=== PATIENT | male | born 1955 | race Caucasian/White ===

== ENCOUNTER 2018-10-24 09:14 | Inpatient (IN) | payer BC ==
[~2018-10-24 09:14] MED LIST: Buffered Lidocaine 0.9% SYRIN* 5 ML/SYR SYRINGE INTRADERM ONE; Lactated Ringers 1000 ML Bag* 1,000 ML IV SCH
[2018-10-24] MEDS ORDERED: ceFAZolin 2 GM PREMIX in ORs 2 GM/50 ML BAG IVPB ONE (10:36)
[2018-10-24] MEDS ORDERED: Lidocaine 2% PF * 5 ML VIAL ONE (10:56)
[2018-10-24] MEDS ORDERED: Propofol* 10 MG/ML 20 ML BTL ONE (10:56)
[2018-10-24] MEDS ORDERED: Midazolam* 1 MG/ML 2 ML VIAL (2 MG) ONE (10:57)
[2018-10-24] MEDS ORDERED: fentaNYL* 50 MCG/ML 2 ML VIAL (100 MCG VIAL) ONE (10:57)
[2018-10-24] MEDS ORDERED: Rocuronium* 10 MG/ML VIAL ONE (10:57)
[2018-10-24] MEDS ORDERED: Phenylephrine INJ* 10 MG/ML 1 ML VIAL (10 MG) ONE (11:00)
[2018-10-24] MEDS ORDERED: HYDROmorphone INJ1* 1 MG/ML SYRINGE ONE ×2 (11:21→14:40)
[2018-10-24] MEDS ORDERED: Neostigmine Methylsulfate* 1 MG/ML 10 ML VIAL (1 mg/ml) ONE ×2 (11:22→13:40)
[2018-10-24] MEDS ORDERED: Glycopyrrolate IV* 0.2 MG/ML 1 ML VIAL ONE ×2 (11:22→13:40)
[2018-10-24] MEDS ORDERED: Lidocain 1% EPI 1:100,000 * 30 ML MDV ONE (11:55)
[2018-10-24] MEDS ORDERED: Bacitracin IV* 50,000 UNITS INJ ONE (11:55)
[2018-10-24] MEDS ORDERED: ROPINIROLE 1 MG PO ONE (12:00)
[2018-10-24] MEDS ORDERED: CARBIDOPA PO ONE ×3 (12:00)
[2018-10-24] MEDS ORDERED: LEVODOPA PO ONE (12:00)
[2018-10-24] MEDS ORDERED: LEVODOP PO ONE ×2 (12:00)
[2018-10-24] MEDS ORDERED: Thrombin 5,000 UNITS* 1 APPLIC KIT - topical use - TOPICAL ONE (12:17)
[2018-10-24] MEDS ORDERED: Ketorolac INJ* 30 MG/ML 1 ML VIAL ONE (12:59)
[2018-10-24] MEDS ORDERED: Dexamethasone IV* 4 MG/ML 1 ML (4 MG) ONE (12:59)
[2018-10-24] MEDS ORDERED: Metoclopramide IV* 5 MG/ML 2 ML VIAL ONE (12:59)
[2018-10-24] MEDS ORDERED: Ondansetron INJ* 2 MG/ML VIAL ONE (12:59)
[2018-10-24] MEDS ORDERED: oxyCODONE TAB* 5 MG TAB PO PRN (14:11)
[2018-10-24] MEDS ORDERED: Magnesium Hydroxide LIQ* 30 ML UDC PO PRN (14:11)
[2018-10-24] MEDS ORDERED: Acetaminophen TAB* 325 MG PO PRN ×2 (14:11→14:40)
[2018-10-24] MEDS ORDERED: Ondansetron INJ* 2 MG/ML VIAL IV PRN (14:11)
[2018-10-24] MEDS ORDERED: Naloxone* 0.4 MG/ML 1 ML VIAL IV PRN (14:40)
[2018-10-24] MEDS: HYDROmorphone INJ1* 1 MG/ML SYRINGE IV PRN ×5 (14:40→15:23)
[2018-10-24] MEDS ORDERED: DiMENhydriNATE IV* 50 MG/ML VIAL IV PUSH PRN (14:40)
[2018-10-24] MEDS ORDERED: oxyCODONE TAB* 5 MG TAB ONE (14:57)
[2018-10-24] MEDS: oxyCODONE TAB* 5 MG TAB PO PRN ×3 (14:59→20:23)
[2018-10-24] MEDS ORDERED: Lactated Ringers 1000 ML Bag* 1,000 ML IV SCH (15:00)
[2018-10-24] MEDS: Carbidopa/Levodop 25/100 MG TAB(*) PO SCH (15:04)
[2018-10-24] MEDS: rOPINIRole TAB* 1 MG PO SCH (15:04)
[2018-10-24] MEDS: Gabapentin CAP(*) 100 MG PO SCH (15:04)
[2018-10-24] MEDS: Carbidopa/Levodop CR 50/200(*) TAB.CR PO SCH (15:05)
[2018-10-24] MEDS: traMADol TAB* 50 MG PO PRN (17:51)
[2018-10-24] MEDS: rOPINIRole TAB* 4 MG PO SCH (22:11)
[2018-10-24] MEDS: clonazePAM TAB(*) 0.5 MG PO SCH (22:11)
[2018-10-24] MEDS: Propranolol TAB* 20 MG PO SCH (22:13)
[2018-10-25] MEDS: rOPINIRole TAB* 1 MG PO SCH ×3 (06:26→13:53)
[2018-10-25] MEDS: Carbidopa/Levodop 25/100 MG TAB(*) PO SCH ×3 (06:26→13:53)
[2018-10-25] MEDS: Carbidopa/Levodop CR 50/200(*) TAB.CR PO SCH ×3 (06:27→13:53)
[2018-10-25] MEDS: Carbidopa/Levodop 25/250MG TAB(*) PO SCH ×2 (06:28→09:53)
[2018-10-25] MEDS: Gabapentin CAP(*) 100 MG PO SCH ×3 (06:28→13:55)
[2018-10-25] MEDS: oxyCODONE TAB* 5 MG TAB PO PRN ×3 (09:41→23:33)
[2018-10-25] MEDS ORDERED: Methocarbamol TAB* 500 MG PO PRN (10:15)
--- NOTE | 2018-10-25 12:48 | PN ---
Progress Note - Progress Note Date of Service: 10/25/18 SOAP: Subjective: [S/p decompressive lumbar laminectomy L3-4, L4-5, L5-S1, POD #1. Reports improvement in pre-op lower extremity and hips pain. Complains of low back discomfort, pain and muscle tightness. Pain contributes to worsening of PD symptoms, tremor. Was able to get up with assistance. Denies headache, nausea. ] Objective: [ Vital Signs: Temp Pulse Resp BP Pulse Ox 97.8 F 73 16 102/55 97 10/25/18 02:09 10/25/18 02:09 10/25/18 09:53 10/25/18 02:09 10/25/18 02:09 General: Alert and sitting up in bed, NAD. Neuro: Motor and sensory normal. Upper extremity tremor bilaterally. Incision: Intact with [place], no swelling. Wound drain in place and functioning well. Wound drain output 10/24/18 10/24/18 10/24/18 14:45 18:00 20:04 Output, CHRISTIAN #1 60 50 40 10/24/18 10/25/18 10/25/18 22:00 02:17 06:00 Output, CHRISTIAN #1 20 35 18 10/25/18 10:13 Output, CHRISTIAN #1 40 ] Assessment: [Satisfactory post-op. Wound drain requires further monitoring. ] Plan: [1. PT evaluation 2. Add muscle relaxant 3. Continue pain management]
[2018-10-25] MEDS: traMADol TAB* 50 MG PO PRN ×2 (13:54→21:18)
[2018-10-25] MEDS: rOPINIRole TAB* 4 MG PO SCH (23:32)
[2018-10-25] MEDS: clonazePAM TAB(*) 0.5 MG PO SCH (23:33)
[2018-10-25] MEDS: Propranolol TAB* 20 MG PO SCH (23:33)
[2018-10-26] MEDS: rOPINIRole TAB* 1 MG PO SCH ×3 (06:49→14:19)
[2018-10-26] MEDS: Carbidopa/Levodop 25/100 MG TAB(*) PO SCH ×3 (06:49→14:17)
[2018-10-26] MEDS: Carbidopa/Levodop 25/250MG TAB(*) PO SCH ×2 (06:49→11:08)
[2018-10-26] MEDS: Gabapentin CAP(*) 100 MG PO SCH ×3 (06:49→14:18)
[2018-10-26] MEDS: Carbidopa/Levodop CR 50/200(*) TAB.CR PO SCH ×3 (06:49→14:17)
[2018-10-26] MEDS: traMADol TAB* 50 MG PO PRN (06:51)
--- NOTE | 2018-10-26 07:33 | PN ---
Progress Note - Progress Note Date of Service: 10/26/18 SOAP: Subjective: [S/p decompressive lumbar laminectomy L3-4, L4-5, L5-S1, POD #2. Patient feeling better than yesterday. Worked with PT yesterday ambulating and felt worn out after, low back pain and soreness. Was ambulating well, lower extremity pain resolved. Denies headache, nausea. Eating and drinking well.] Objective: [ Vital Signs: Temp Pulse Resp BP Pulse Ox 98.0 F 77 19 106/62 97 10/26/18 03:28 10/26/18 03:28 10/26/18 06:51 10/26/18 03:28 10/26/18 03:28 General: Laying comofrtably in bed, NAD. Neuro: Motor and sensory intact. Mild tremor. Incision: Intact with [place]. Dressing in place, no swelling. Wound drain discontinued today. Wound drain output 10/24/18 10/24/18 10/24/18 14:45 18:00 20:04 Output, CHRISTIAN #1 60 50 40 10/24/18 10/25/18 10/25/18 22:00 02:17 06:00 Output, CHRISTIAN #1 20 35 18 10/25/18 10/25/18 10/25/18 10:13 12:04 14:23 Output, CHRISTIAN #1 40 20 30 10/25/18 10/25/18 10/26/18 18:07 20:19 00:00 Output, CHRISTIAN #1 30 40 30 10/26/18 07:26 Output, CHRISTIAN #1 20 ] Assessment: [Stable post-op. Pre-op symptoms improved.] Plan: [1. PT for stairs today 2. Possible discharge home this afternoon 3. Continue pain management]
[2018-10-26 11:56] VITALS: BP 103/56
--- NOTE | 2018-10-28 03:52 | OP ---
DATE OF OPERATION: 10/24/18 - ROOM #339 DATE OF : 57 PRIMARY SURGEON: Shayan Brown MD. ANESTHESIA: General. PRE-OP DIAGNOSIS: Lumbar spinal stenosis, L3-4, L4-5, L5-S1. POST-OP DIAGNOSIS: Lumbar spinal stenosis, L3-4, L4-5, L5-S1. OPERATIVE PROCEDURE: Lumbar decompressive laminectomy, L3-4, L4-5, L5-S1 with bilateral foraminotomies. DESCRIPTION OF PROCEDURE: After satisfactory general anesthesia was obtained, the patient was placed on the operating table in the prone position with the chest supported on the Abelardo frame and the back slightly flexed. The lumbar region was then clipped, prepped, and draped in a sterile manner for lumbar laminectomy and a skin incision outlined from L3 to the sacrum. This incision was infiltrated with 1% Xylocaine with epinephrine, after which it was turned down sharply to the level of the lumbar fascia. The fascia was divided along the spinous processes from L3 to the sacrum and paraspinal musculature stripped away from these posterior elements using the periosteal elevator and monopolar cautery. An intraoperative x- ray was obtained varying proper interspace localization, after which, the initial step in the step in the procedure was performed, it was of a decompression at L3-4. The spinous processes of L3, L4, and L5 were removed with a combination of the Mazin rib shear and Leksell rongeurs. The remaining portion of the base of spinous process at L3 and medial facet complex was thinned out with [place] Main drill and a decompression carried out. This was carried superiorly until the attachment of ligamentum flavum was taken down. The pathology at this level was combination ligamentous thickening and bony hypertrophy contributing to nerve root compromise. The decompression was carried out laterally and inferiorly until the L4 nerve roots were noted to be free in their course. Attention was then directed to the L4-5 where similar decompression was carried out. The pathology at this level was again a combination of ligamentous hypertrophy and bony thickening. The decompression was carried out laterally and inferiorly until the L5 nerve roots were noted to be free in their course. The findings at L5-S1 level were similar, but less severe. Thickened ligament and bone were removed until the S1 nerve roots were noted to be free in their course. After assuring adequate hemostasis, wound was thoroughly irrigated, after which a Gelfoam was placed over the laminectomy defects. A drain was then placed in the epidural space and tunneled out toward the left side. The fascia was then reapproximated with 0 Vicryl suture, subcutaneous tissues closed with 3-0 Vicryl suture and the skin closed with skin clips. The estimated blood loss was 100 cc and the final sponge, padding, and needle counts were correct. The patient taken to recovery room, extubated and in stable condition. [id number]/[facility] #: [id number] [facility]ENT[facility]obert
== END 2018-10-26 14:44 | disposition home or self-care (01) | DRG 320 ==
LOC: OR 09:14 → SSU 16:37 → OBSVTOIN 10-25 10:14
PROVIDERS: ADMIT Neurological Surgery; ATTEND Neurological Surgery
PROC: 01NB0ZZ Release Lumbar Nerve, Open Approach (ICD-10-PCS; principal; 2018-10-24 11:30)
DX: M48.062 Spinal stenosis, lumbar region with neurogenic claudication (principal); G20 Parkinson's disease; F32.9 Major depressive disorder, single episode, unspecified; F41.9 Anxiety disorder, unspecified; Z79.1 Long term (current) use of non-steroidal anti-inflammatories (NSAID); Z79.899 Other long term (current) drug therapy; Z88.8 Allergy status to other drugs, medicaments and biological substances; Z91.018 Allergy to other foods; Z91.048 Other nonmedicinal substance allergy status; Z83.3 Family history of diabetes mellitus; Z82.49 Family history of ischemic heart disease and other diseases of the circulatory system; Z80.0 Family history of malignant neoplasm of digestive organs
CPT/HCPCS: 72100; A9270-GY; G0378; G8978-GP-CK; G8979-GP-CI; J0690; J1100; J1170; J1885; J2250; J2405; J2704; J2710; J2765; J3010

== ENCOUNTER 2022-11-28 09:21 | Observation (INO) ==
[~2022-11-28 09:21] MED LIST changes: -Buffered Lidocaine 0.9% SYRIN* 5 ML/SYR SYRINGE INTRADERM ONE; +Buffered Lidocaine 1% SYRIN 1 ml INTRADERM ONE; -Lactated Ringers 1000 ML Bag* 1,000 ML IV SCH; +Lactated Ringers 1000 ml BAG 1,000 ML IV SCH
[2022-11-28] MEDS ORDERED: ceFAZolin 2 GM PREMIX 2 GM/50 ML BAG ONE (10:27)
[2022-11-28] MEDS ORDERED: Chlorhexidine MOUTHWASH 0.12% 15 ML UDC ONE (10:27)
[2022-11-28] MEDS ORDERED: Lidocaine 2% PF 5 ML VIAL ONE (10:51)
[2022-11-28] MEDS ORDERED: Propofol 10 MG/ML 20 ML BTL ONE (10:52)
[2022-11-28] MEDS ORDERED: Rocuronium 50 mg VIAL 10 mg/ml 5 ml VIAL (50 mg) ONE (10:52)
[2022-11-28] MEDS ORDERED: fentaNYL 250 mcg/5 ml 50 MCG/ML 5 ml VIAL (250 MCG) ONE (10:52)
[2022-11-28] MEDS ORDERED: Midazolam 2 mg/2 ml VIAL 1 mg/ml 2 ml VIAL (2 mg) ONE (10:52)
[2022-11-28] MEDS ORDERED: ceFAZolin VIAL VIAL ONE (11:38)
[2022-11-28] MEDS ORDERED: Thrombin 5,000 UNITS 1 APPLIC KIT - topical use - TOPICAL ONE (11:38)
[2022-11-28] MEDS ORDERED: Gelfoam Sponge SIZE 100 SPONGE ONE (11:38)
[2022-11-28] MEDS ORDERED: Lidocaine 2% w EPI 1:100,000 20 ML MDV VIAL ONE (11:38)
[2022-11-28] MEDS ORDERED: Dexamethasone IV 4 MG/ML VIAL 1 ml VIAL ONE ×2 (12:56)
[2022-11-28] MEDS ORDERED: Ondansetron 4 mg VIAL 2 MG/ML 2 ml VIAL ONE (12:56)
[2022-11-28] MEDS ORDERED: Acetaminophen IV 1 GM/100ML 1,000 MG/100 ML BAG IV ONE (12:56)
[2022-11-28] MEDS ORDERED: Naloxone 0.4 mg VIAL 0.4 mg/ml 1 ml VIAL IV PRN (13:12)
[2022-11-28] MEDS ORDERED: Morphine 2 MG/ML SYRINGE IV PRN (13:53)
[2022-11-28] MEDS ORDERED: Lactated Ringers 1000 ml BAG 1,000 ML IV SCH (14:00)
[2022-11-28] MEDS ORDERED: Senna TAB 8.6 mg TAB PO PRN (16:23)
[2022-11-28] MEDS ORDERED: ROPINIROLE 6 MG PO SCH (17:00)
[2022-11-28] MEDS: Carbidopa/Levodop CR 50/200 TAB.CR PO SCH ×2 (17:05→23:07)
[2022-11-28] MEDS ORDERED: Calcium Citrate 200 mg TAB PO SCH (21:00)
[2022-11-29] MEDS: HYDROcodone/ACETAMIN 5/325 mg TAB PO PRN ×2 (04:55→11:52)
[2022-11-29 08:27] VITALS: BP 124/72
[2022-11-29] MEDS: Carbidopa/Levodop CR 50/200 TAB.CR PO SCH (09:34)
== END 2022-11-29 12:15 | disposition home or self-care (01) ==
LOC: SSU 09:21 → OR 09:21
PROVIDERS: ADMIT Neurological Surgery; ATTEND Neurological Surgery

== ENCOUNTER 2023-11-18 14:25 | Inpatient (IN) ==
[2023-11-18 19:58] LABS: ABS Basophils 0.1 10^3/uL (0.0-0.1); ABS Eosinophils 0.6 10^3/uL (0.0-0.5); ABS Lymphocytes 1.1 10^3/uL (1.0-4.8); ABS Monocytes 0.5 10^3/uL (0.0-1.1); ABS Neutrophils 4.1 10^3/uL (1.5-7.6); Eosinophil % 9.3 %; Hematocrit 36.6 % (38-53); Hemoglobin 12.4 g/dL (13.2-16.3); Lymphocyte % 16.6 %; Mean Corpuscular Hemoglobin 31.7 pg (27-33); Mean Corpuscular Volume 93.1 fL (80-97); Mean Platelet Volume 6.6 fL (7.5-11.2); Nucleated Red Blood Cells % 0.1 %/100WBC (0.0-0.8); Platelet Count 280 10^3/uL (150-450); Red Blood Count 3.93 10^6/uL (4.06-5.63); Red Cell Distribution Width 13.7 % (12-17); White Blood Count 6.4 10^3/uL (3.6-10.2)
[2023-11-18 20:16] LABS: Albumin 4.6 g/dL (3.2-5.2); Albumin/Globulin Ratio 1.5 (1-3); Calcium 10.3 mg/dL (8.6-10.3); Creatinine, Serum 0.8 mg/dL (0.67-1.17); Total Bilirubin 0.8 mg/dL (0.2-1.0); Total Protein 7.6 g/dL (6.4-8.9); eGFR CKD-EPI 97.6 (>60)
[2023-11-18] MEDS: Morphine 4 MG/ML VIAL (1 ml) IV ONE (22:51)
[2023-11-18] MEDS: Calcium Citrate 200 mg TAB PO SCH (23:40)
[2023-11-18] MEDS: Carbidopa/Levodop CR 50/200 TAB.CR PO SCH (23:42)
[2023-11-18] MEDS: Enoxaparin 40 MG/0.4 ML SYR SUBCUT SCH (23:42)
[2023-11-19] MEDS ORDERED: Naloxone 0.4 mg VIAL 0.4 mg/ml 1 ml VIAL IV PUSH PRN (02:30)
[2023-11-19] MEDS: ROPINIROLE 8 MG PO SCH ×3 (03:48→22:18)
[2023-11-19] MEDS: Polyethylene Glycol 3350 17 GM PACKET PO SCH (10:18)
[2023-11-19] MEDS: CMCS: Mirabegron 25 mg ER TAB (NF) PO SCH (10:20)
[2023-11-19] MEDS: Senna TAB 8.6 mg TAB PO SCH (21:02)
[2023-11-20 08:59] LABS: Hematocrit 33.5 % (38-53); Hemoglobin 11.6 g/dL (13.2-16.3); Mean Corpuscular Hemoglobin 31.8 pg (27-33); Mean Corpuscular Hgb Conc 34.6 g/dL (31-36); Mean Platelet Volume 6.8 fL (7.5-11.2); Platelet Count 267 10^3/uL (150-450); Red Blood Count 3.64 10^6/uL (4.06-5.63); Red Cell Distribution Width 13.9 % (12-17); White Blood Count 5.2 10^3/uL (3.6-10.2)
[2023-11-20 09:26] LABS: Albumin 4.2 g/dL (3.2-5.2); Albumin/Globulin Ratio 1.4 (1-3); Calcium 9.6 mg/dL (8.6-10.3); Creatinine, Serum 0.78 mg/dL (0.67-1.17); Globulin 2.9 g/dL (2-4); Potassium 4.2 mmol/L (3.5-5.0); Total Bilirubin 0.7 mg/dL (0.2-1.0); Total Protein 7.1 g/dL (6.4-8.9); eGFR CKD-EPI 98.4 (>60)
[2023-11-20 12:39] LABS: C Reactive Protein 17.66 mg/L (<8.01)
[2023-11-20] MEDS: Iohexol 300 (CONTRAST) 10 ML SDV IV ONE (14:57)
[2023-11-21 06:48] LABS: Hematocrit 33.3 % (38-53); Hemoglobin 11.4 g/dL (13.2-16.3); Mean Corpuscular Hemoglobin 31.7 pg (27-33); Mean Corpuscular Hgb Conc 34.4 g/dL (31-36); Mean Corpuscular Volume 92.3 fL (80-97); Mean Platelet Volume 6.9 fL (7.5-11.2); Platelet Count 276 10^3/uL (150-450); Red Cell Distribution Width 14.4 % (12-17); White Blood Count 6.5 10^3/uL (3.6-10.2)
[2023-11-21 07:07] LABS: Calcium 9.4 mg/dL (8.6-10.3); Creatinine, Serum 0.74 mg/dL (0.67-1.17); Magnesium 2.1 mg/dL (1.9-2.7); Potassium 3.8 mmol/L (3.5-5.0); eGFR CKD-EPI 99.9 (>60)
[2023-11-21] MEDS: Furosemide 40 mg/4 ml IV VIAL IV SLOW PU ONE (10:00)
[2023-11-21] MEDS: fentaNYL PATCH 12 MCG/HR 1 PATCH TRANSDERM SCH (14:44)
[2023-11-21] MEDS: ROPINIROLE 8 MG PO SCH (18:29)
[2023-11-21] MEDS: fentaNYL Patch Check Q Shift NOTE FOLLOW UP SCH (19:26)
[2023-11-22 06:30] LABS: Hematocrit 29.9 % (38-53); Hemoglobin 10.2 g/dL (13.2-16.3); Mean Corpuscular Hemoglobin 31.6 pg (27-33); Mean Corpuscular Volume 92.8 fL (80-97); Platelet Count 224 10^3/uL (150-450); Red Blood Count 3.22 10^6/uL (4.06-5.63); White Blood Count 5.6 10^3/uL (3.6-10.2)
[2023-11-22 06:38] LABS: Urine Appearance Clear; Urine Bilirubin Negative (Negative); Urine Blood Negative (Negative); Urine Color Yellow; Urine Glucose Negative (Negative); Urine Ketones Trace (Negative); Urine Nitrite Negative (Negative); Urine Protein 1+ (>=30 mg/dL) (Negative); Urine Specific Gravity 1.041 (1.002-1.030); Urine Urobilinogen Negative (Negative); Urine pH 5.5 (5.0-8.0)
[2023-11-22 06:44] LABS: Urine Bacteria Absent /HPF (Absent); Urine Red Blood Cell Absent /HPF (0-Trace); Urine White Blood Cell Trace(0-5/hpf) /HPF (0-Trace)
[2023-11-22 06:46] LABS: Calcium 8.7 mg/dL (8.6-10.3); Creatinine, Serum 0.74 mg/dL (0.67-1.17); Magnesium 2.1 mg/dL (1.9-2.7); Potassium 3.4 mmol/L (3.5-5.0); eGFR CKD-EPI 99.9 (>60)
[2023-11-22] MEDS: Potassium Chlor 20 meq TAB.ER PO ONE (08:31)
[2023-11-22 10:17] VITALS: BP 136/74
== END 2023-11-22 13:58 | disposition home or self-care (01) | DRG 74 ==
LOC: EDHOLD 14:25 → ED 14:25 → SUATTDRO 22:52 → MEDTELE 11-19 01:33
PROVIDERS: ADMIT Internal Medicine; ATTEND Internal Medicine

== ENCOUNTER 2024-03-26 14:48 | Observation (INO) ==
[2024-03-26 15:23] LABS: ABS Eosinophils 0.1 10^3/uL (0.0-0.5); ABS Lymphocytes 0.7 10^3/uL (1.0-4.8); ABS Monocytes 0.6 10^3/uL (0.0-1.1); ABS Neutrophils 4.9 10^3/uL (1.5-7.6); Eosinophil % 1.6 %; Hematocrit 35.4 % (38-53); Hemoglobin 11.5 g/dL (13.2-16.3); Lymphocyte % 11.4 %; Mean Corpuscular Hgb Conc 32.6 g/dL (31-36); Mean Corpuscular Volume 91.9 fL (80-97); Mean Platelet Volume 6.7 fL (7.5-11.2); Platelet Count 203 10^3/uL (150-450); Red Blood Count 3.85 10^6/uL (4.06-5.63); Red Cell Distribution Width 13.4 % (12-17); White Blood Count 6.3 10^3/uL (3.6-10.2)
[2024-03-26 15:33] LABS: INR 1.13 (0.83-1.13)
[2024-03-26 15:59] LABS: Albumin 3.8 g/dL (3.2-5.2); Albumin/Globulin Ratio 1.5 (1-3); Calcium 8.9 mg/dL (8.6-10.3); Creatinine, Serum 0.71 mg/dL (0.67-1.17); Globulin 2.5 g/dL (2-4); Potassium 3.8 mmol/L (3.5-5.0); Total Bilirubin 0.6 mg/dL (0.2-1.0); Total Protein 6.3 g/dL (6.4-8.9); eGFR CKD-EPI 100.6 (>60)
[2024-03-26 17:22] LABS: High Sensitivity Troponin 1 Hr 6 pg/mL (<20)
[2024-03-26 18:56] LABS: Urine Appearance Clear; Urine Bilirubin Negative (Negative); Urine Blood 1+ (Negative); Urine Color Light-Yellow; Urine Glucose Negative (Negative); Urine Ketones Trace (Negative); Urine Nitrite Negative (Negative); Urine Protein Negative (Negative); Urine Specific Gravity 1.005 (1.002-1.030); Urine Urobilinogen Negative (Negative)
[2024-03-26 19:14] LABS: Urine Bacteria Absent /HPF (Absent); Urine Red Blood Cell Trace(0-2/hpf) /HPF (0-Trace); Urine White Blood Cell Trace(0-5/hpf) /HPF (0-Trace)
[2024-03-27] MEDS: Enoxaparin 40 MG/0.4 ML SYR SUBCUT SCH (00:11)
[2024-03-27] MEDS: fentaNYL PATCH 25 MCG/HR 1 PATCH TRANSDERM SCH (00:13)
[2024-03-27] MEDS: Carbidopa/Levodop CR 50/200 TAB.CR PO SCH (02:49)
[2024-03-27] MEDS: Simethicone SUSP ORALSYR 66.66 MG/ML PO PRN (06:16)
[2024-03-27 06:22] LABS: ABS Eosinophils 0.2 10^3/uL (0.0-0.5); ABS Lymphocytes 0.6 10^3/uL (1.0-4.8); ABS Monocytes 0.6 10^3/uL (0.0-1.1); ABS Neutrophils 3.5 10^3/uL (1.5-7.6); Eosinophil % 3.3 %; Hematocrit 33.8 % (38-53); Hemoglobin 11.2 g/dL (13.2-16.3); Lymphocyte % 12.1 %; Mean Corpuscular Hemoglobin 30.2 pg (27-33); Mean Corpuscular Hgb Conc 33.2 g/dL (31-36); Mean Corpuscular Volume 91.1 fL (80-97); Mean Platelet Volume 6.9 fL (7.5-11.2); Platelet Count 189 10^3/uL (150-450); Red Blood Count 3.71 10^6/uL (4.06-5.63); Red Cell Distribution Width 13.2 % (12-17)
[2024-03-27 06:52] LABS: C Reactive Protein 175.23 mg/L (<8.01); Calcium 8.3 mg/dL (8.6-10.3); Creatinine, Serum 0.62 mg/dL (0.67-1.17); Magnesium 1.8 mg/dL (1.9-2.7); Potassium 3.7 mmol/L (3.5-5.0); eGFR CKD-EPI 104.8 (>60)
[2024-03-27 07:11] LABS: TSH Ultra Thyroid Stim Horm 1.97 mcIU/mL (0.34-5.60)
[2024-03-27 07:25] LABS: Vitamin D Total 25(OH) 35.2 ng/mL (20-50)
[2024-03-27] MEDS: fentaNYL Patch Check Q Shift NOTE FOLLOW UP SCH (07:26)
[2024-03-27] MEDS: Magnesium Sulfate 2 gm BAG 2 GM/50 ML BAG IVPB ONE (08:54)
[2024-03-27] MEDS: DULoxetine DR 30 mg CAP PO SCH (08:55)
[2024-03-27] MEDS: Potassium Chlor 20 meq TAB.ER PO ONE (08:55)
[2024-03-27] MEDS: CMCS: Mirabegron 25 mg ER TAB (NF) PO SCH (08:56)
[2024-03-27] MEDS ORDERED: Carbidopa/Levodop CR 50/200 TAB.CR PO SCH (09:00)
[2024-03-27] MEDS: Ondansetron ODT 4 mg TAB 4 MG TAB PO PRN (10:41)
[2024-03-27 12:25] LABS: RBC Parasite Smear No Parasites Seen (No Parasite)
[2024-03-27] MEDS ORDERED: ROPINIROLE 8 MG PO SCH (21:00)
[2024-03-28 06:18] LABS: ABS Basophils 0.1 10^3/uL (0.0-0.1); ABS Eosinophils 0.3 10^3/uL (0.0-0.5); ABS Lymphocytes 0.9 10^3/uL (1.0-4.8); ABS Monocytes 0.6 10^3/uL (0.0-1.1); ABS Neutrophils 2.1 10^3/uL (1.5-7.6); Eosinophil % 6.8 %; Hematocrit 31.6 % (38-53); Hemoglobin 10.6 g/dL (13.2-16.3); Lymphocyte % 22.9 %; Mean Corpuscular Hemoglobin 30.6 pg (27-33); Mean Corpuscular Hgb Conc 33.6 g/dL (31-36); Mean Corpuscular Volume 90.9 fL (80-97); Mean Platelet Volume 6.6 fL (7.5-11.2); Nucleated Red Blood Cells % 0.1 %/100WBC (0.0-0.8); Platelet Count 198 10^3/uL (150-450); Red Blood Count 3.48 10^6/uL (4.06-5.63); Red Cell Distribution Width 13.3 % (12-17); White Blood Count 3.9 10^3/uL (3.6-10.2)
[2024-03-28 06:46] LABS: Calcium 8.3 mg/dL (8.6-10.3); Creatinine, Serum 0.65 mg/dL (0.67-1.17); Magnesium 2.1 mg/dL (1.9-2.7); Potassium 4.2 mmol/L (3.5-5.0); eGFR CKD-EPI 103.3 (>60)
[2024-03-28] MEDS: Polyethylene Glycol 3350 17 GM PACKET PO SCH (08:11)
[2024-03-28 10:05] VITALS: BP 120/72
[2024-03-29 21:42] LABS: Anaplasma phagocytophilum Negative (Negative); B. miyamotoi PCR, B Negative (Negative); Babesia divergens/MO-1 Negative (Negative); Babesia ducani Negative (Negative); Ehrlichia chaffeensis Negative (Negative); Ehrlichia ewingii/canis Negative (Negative); Ehrlichia muris eauclairensis Negative (Negative)
== END 2024-03-28 14:35 | disposition home or self-care (01) ==
LOC: EDHOLD 14:48 → ED 14:48 → MEDTELE 14:48 → SUATTDRO 22:25 → EDHOLD 23:16 → MEDTELE 23:31
PROVIDERS: ADMIT Student in an Organized Health Care Education/Training Program; ATTEND Student in an Organized Health Care Education/Training Program